=== PATIENT | male | born 1950 | race Two or more races ===

== ENCOUNTER 2020-06-21 13:22 | Observation (INO) | payer MEDICARE, OTHER ==
[~2020-06-21] VITALS: Ht 165.1 cm; Wt 82.3 kg
--- NOTE | 2020-06-21 13:49 | NUR ---
Pt arrived with complaints of right sided abdomen pain and hx of consitpation. Pt is accompanied by family. Rosy PUENTE at bedside to discuss POC. Pt connected to continious BP and O2 monitors.
[2020-06-21] MEDS ORDERED: ONDANSETRON 2MG/ML, 2ML IVPush ONE (14:00)
[2020-06-21] MEDS ORDERED: MORPHINE SULFATE 4 MG/ML, 1ML IVPush PRN (14:00)
[2020-06-21] MEDS ORDERED: SODIUM CHLORIDE FLUSH 10ML SYR IVF ONE (14:00)
[2020-06-21] MEDS ORDERED: ONDANSETRON 2MG/ML, 2ML ONE ×2 (14:05→18:50)
[2020-06-21] MEDS ORDERED: MORPHINE SULFATE 4 MG/ML, 1ML ONE (14:05)
[2020-06-21 14:10] LABS: BASOPHILS % (AUTO) 0 % (0-1); EOSINOPHILS % (AUTO) 0 % (1-7); LYMPHOCYTES % (AUTO) 12 % (22-44); MEAN CORPUSCULAR HEMOGLOBIN 29.3 pg (27.5-34.5); MEAN CORPUSCULAR HGB CONC 35.3 g/dL (33.2-36.2); MEAN PLATELET VOLUME 8.7 fL (7.4-10.4); MONOCYTES % (AUTO) 8 % (2-9); NEUTROPHILS % (AUTO) 80 % (42-75); PLATELET COUNT 139 x10^3/uL (130-400); RED BLOOD COUNT 5.95 x10^6/uL (4.38-5.82); RED CELL DISTRIBUTION WIDTH 13.7 % (9.4-14.8)
[2020-06-21 14:11] LABS: MD NO
--- NOTE | 2020-06-21 14:13 | NUR ---
Pt medicated per MAR. No other needs at this time.
[2020-06-21 14:22] LABS: ALANINE AMINOTRANSFERASE 22 U/L (12-78); ALBUMIN 4.5 g/dL (3.4-5.0); ANION GAP 4 mmol/L (5-15); CALCIUM 9.1 mg/dL (8.5-10.1); CHLORIDE 107 mmol/L (98-107); CREATININE 0.96 mg/dL (0.7-1.3)
[2020-06-21 14:24] LABS: ALKALINE PHOSPHATASE 89 U/L (45-117); BILIRUBIN,TOTAL 1.9 mg/dL (0.2-1.0); TOTAL PROTEIN 7.8 g/dL (6.4-8.2)
--- NOTE | 2020-06-21 14:40 | NUR ---
US at bedside. Pt reports diminished pain. No other needs at this time.
--- NOTE | 2020-06-21 15:15 | NUR ---
MT: GEN. SURGERY PAGED
--- NOTE | 2020-06-21 15:54 | NUR ---
Pt resting in bed, reports abd pain 2/10, denies need for additional pain medication or other needs.
[2020-06-21] MEDS ORDERED: TAMS-11 PO (15:59)
[2020-06-21] MEDS ORDERED: MECL12.590 PO (15:59)
[2020-06-21] MEDS ORDERED: FOLI0.8T5 PO (15:59)
[2020-06-21] MEDS ORDERED: DOCU100C33 PO (15:59)
[2020-06-21] MEDS ORDERED: ALEN10TA10 PO (15:59)
--- NOTE | 2020-06-21 16:20 | NUR ---
Report given to DIET COUNSELOR. Pt to go to OR at 1800. Pt aware and agreeable to plan.
--- NOTE | 2020-06-21 16:22 | NUR ---
Attempt to call report to floor. RN unavailable.
--- NOTE | 2020-06-21 16:25 | NUR ---
Attempt to call floor sup. Sup RN unavailable.
--- NOTE | 2020-06-21 16:34 | NUR ---
Report called to Missy SALEEM on surgical floor. Floor ready for pt transport.
[2020-06-21] MEDS ORDERED: BUPIVACAINE/PF 0.5% ONE (16:44)
[2020-06-21] MEDS ORDERED: EPINEPHRINE 1 MG/ML, 1ML ONE (16:45)
[2020-06-21 16:51] VITALS: BP 107/66
[2020-06-21] MEDS ORDERED: FENTANYL PF 250 MCG/5ML ONE (17:46)
[2020-06-21] MEDS ORDERED: MIDAZOLAM 1 MG/ML, 2ML ONE (17:46)
[2020-06-21] MEDS ORDERED: BUPIVACAINE/PF-EPI 0.5% 1:200K IM ONE (18:22)
[2020-06-21] MEDS ORDERED: MEPERIDINE/PF 25MG/0.5ML IVPush PRN (18:30)
[2020-06-21] MEDS ORDERED: FENTANYL PF 100 MCG/2ML IV PRN (18:30)
[2020-06-21] MEDS ORDERED: LABETALOL 5MG/ML, 20ML IV PRN (18:30)
[2020-06-21] MEDS ORDERED: HYDROmorphone 2 MG/ML, 1ML IVPush PRN (18:30)
[2020-06-21] MEDS ORDERED: ACETAMINOPHEN 325 MG TABLET PO PRN (18:30)
[2020-06-21] MEDS ORDERED: OXYcodone 5 MG/5 ML ORAL.SOL UDC PO PRN ×2 (18:30→20:30)
[2020-06-21] MEDS ORDERED: DIAZEPAM 5 MG/ML, 2ML IVPush PRN (18:30)
[2020-06-21] MEDS ORDERED: KETOROLAC 30 MG/1 ML IV PRN ×2 (18:30→20:30)
[2020-06-21] MEDS ORDERED: hydrALAzine 20 MG/ML, 1ML IV PRN (18:30)
[2020-06-21] MEDS ORDERED: ALBUTEROL SULFATE 2.5 MG/3 ML NPPB PRN (18:30)
[2020-06-21] MEDS ORDERED: PROMETHAZINE 25 MG/ML, 1ML IV PRN (18:30)
[2020-06-21] MEDS ORDERED: ROCURONIUM 10MG/ML,5ML ONE (18:50)
[2020-06-21] MEDS ORDERED: SUCCINYLCHOLINE 20 MG/ML, 10ML ONE (18:50)
[2020-06-21] MEDS ORDERED: SUGAMMADEX 200 MG/2 ML IVPush ONE (18:50)
[2020-06-21] MEDS ORDERED: GLYCOPYRROLATE 0.2MG/1ML, 5ML ONE (18:50)
[2020-06-21] MEDS ORDERED: NEOSTIGMINE 1 MG/ML, 10ML ONE (18:50)
[2020-06-21] MEDS ORDERED: CEFAZOLIN 1,000 MG ONE (18:50)
[2020-06-21] MEDS ORDERED: PROPOFOL 10 MG/ML, 20ML ONE (18:50)
[2020-06-21] MEDS ORDERED: METOPROLOL 1 MG/ML, 5ML ONE (18:51)
[2020-06-21] MEDS ORDERED: MEPERIDINE/PF 25MG/ML,1ML ONE (19:07)
[2020-06-21 20:15] VITALS: BP 134/87
[2020-06-21] MEDS ORDERED: ONDANSETRON 2MG/ML, 2ML IVPush PRN (20:30)
[2020-06-21] MEDS ORDERED: DIPHENHYDRAMINE 50 MG/ML, 1ML IVPush PRN (20:30)
[2020-06-21] MEDS ORDERED: HYDROmorphone 2 MG/ML, 1ML IV PRN (20:30)
[2020-06-21] MEDS: LACTATED RINGERS 1,000 ML IV SCH (21:38)
[2020-06-21] MEDS ORDERED: OXYC5SOL8 PO ×2 (21:55→21:57)
[2020-06-21] MEDS ORDERED: ACET-2065 PO (22:02)
[2020-06-21] MEDS ORDERED: IBUP-1222 PO (22:08)
[2020-06-21] MEDS ORDERED: DOCU-131 PO (22:10)
[2020-06-22 00:12] VITALS: BP 130/78
[2020-06-22] MEDS ORDERED: ENOXAPARIN 40 MG/0.4 ML SQ SCH (06:00)
[2020-06-22] MEDS: LACTATED RINGERS 1,000 ML IV SCH (06:30)
[2020-06-22 07:15] VITALS: BP 137/71
== END 2020-06-22 10:50 | disposition home or self-care (01) ==
LOC: ED 14:09 → OUT 15:52 → INTOOBSV 16:49 → 4NE 16:49 → DCLOUNGE 06-22 10:33
PROVIDERS: ADMIT Student in an Organized Health Care Education/Training Program; ATTEND Student in an Organized Health Care Education/Training Program
DX: K81.0 Acute cholecystitis (principal); Z20.828 Contact with and (suspected) exposure to other viral communicable diseases; M10.9 Gout, unspecified; N40.0 Benign prostatic hyperplasia without lower urinary tract symptoms; Z87.891 Personal history of nicotine dependence; Z79.899 Other long term (current) drug therapy
CPT/HCPCS: 36415; 47562; 76700; 80053; 83690; 85025; 87635; 88304; 93005; 96361; 96372; 96374; 96375; 99285; G0378; J0171; J0330; J0690; J1650; J2175; J2250; J2270; J2405; J2704; J3010; J7120; S0020; J2710